=== PATIENT | male | born 1955 | race Caucasian/White ===

== ENCOUNTER 2021-05-09 21:27 | Emergency (ER) | payer MEDICAID ==
[~2021-05-09] VITALS: Ht 177.8 cm; Wt 75.0 kg
[2021-05-09 21:50] VITALS: BP 118/68
[2021-05-09] MEDS ORDERED: LEVE250T55 PO (21:57)
[2021-05-09] MEDS ORDERED: LIB5 PO (21:57)
== END 2021-05-10 04:04 | disposition home or self-care (01) ==
LOC: EMS 21:29
DX: R68.2 Dry mouth, unspecified (principal); F17.290 Nicotine dependence, other tobacco product, uncomplicated; Z79.899 Other long term (current) drug therapy
CPT/HCPCS: 99283; Z7502